=== PATIENT | female | born 1985 | race Caucasian/White ===

== ENCOUNTER 2022-02-06 11:05 | Outpatient (REF) | payer BC, SELFPAY ==
[2022-02-07 11:51] LABS: CT PCR NOT DETECTED (Not Detect.); NG PCR NOT DETECTED (Not Detect.)
[2022-02-07 14:19] LABS: BV Int Neg Control Negative (Negative); BV Int Pos Control Positive (Positive)
[2022-02-12 20:57] LABS: HPV mRNA E6/E7 rflx Not Detected (Not Detected)
== END 2022-02-06 11:06 | disposition home or self-care (01) ==
LOC: HO.LAB 11:05
PROVIDERS: Visit Provider Advanced Practice Midwife
DX: Z01.419 Encounter for gynecological examination (general) (routine) without abnormal findings (principal); Z11.51 Encounter for screening for human papillomavirus (HPV)
CPT/HCPCS: 87480; 87491; 87510; 87591; 87624; 87660; 88142

== ENCOUNTER → 2022-06-26 14:29 | Outpatient (BNVA) | payer BC, SELFPAY | PROVIDERS: PCP Internal Medicine; Visit Provider Advanced Practice Midwife | DX: Z30.432 Encounter for removal of intrauterine contraceptive device (principal); Z53.8 Procedure and treatment not carried out for other reasons; Z97.5 Presence of (intrauterine) contraceptive device | CPT/HCPCS: 58301; 81025 ==

== ENCOUNTER 2022-07-25 15:06 | Outpatient (REF) | payer BC, SELFPAY ==
[2022-07-26 14:19] LABS: CT PCR NOT DETECTED (Not Detect.); NG PCR NOT DETECTED (Not Detect.)
== END 2022-07-25 15:07 | disposition home or self-care (01) ==
LOC: HO.LNP 15:06
PROVIDERS: PCP Internal Medicine; Visit Provider Obstetrics & Gynecology
DX: Z30.430 Encounter for insertion of intrauterine contraceptive device (principal)
CPT/HCPCS: 0353U; 58300; J7298

== ENCOUNTER → 2022-08-29 15:46 | Outpatient (BNVA) | payer BC, SELFPAY | PROVIDERS: PCP Internal Medicine; Visit Provider Advanced Practice Midwife | DX: Z13.89 Encounter for screening for other disorder (principal) ==

== ENCOUNTER 2022-11-13 17:00 | Outpatient (RCR) | payer BC, SELFPAY | END 2023-01-17 08:24 | disposition home or self-care (01) | LOC: HO.PT 17:00 | PROVIDERS: PCP Internal Medicine; Visit Provider Advanced Practice Midwife | DX: M62.89 Other specified disorders of muscle (principal) | CPT/HCPCS: 97110; 97112; 97140; 97162 ==

== ENCOUNTER 2023-05-01 15:06 | Outpatient (AMB) | payer BC, SELFPAY ==
--- NOTE | 2023-05-01 15:08 | A.OFFVIS_ITS ---
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 It was inserted last year this is her 3rd I was not able to replace at after removing the last [address] Nolasco for replacement so there was a 3 week gap. She has noticed some more spotting with this 1 where she was totally amenorrheic with the previous two. she is using it for. Control, but this is fine it is not a problem. 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 [facility] Family History (Updated 05/01/23 @ 15:13 by Rayne Louie CMA) Father HTN (hypertension) Mother HTN (hypertension) Maternal Grandfather Diabetes Maternal Grandmother Diabetes Social History (Updated 05/01/23 @ 15:14 by Rayne Louie CMA) Household Members Other:: partner Housing: House Alcohol intake: never Patient Tobacco Use Status: Never used Tobacco Current occupational status: unemployed Sexual orientation: Straight/Heterosexual Gender identity: Female Female Reproductive History Menstrual Age of Menarche: 13 control method: progestin IUCD Total pregnancies: 0 Date of last pap smear: 02/08/22 Physical Exam Vital Signs: Last Vital Signs BP 114/68 05/01/23 15:11 BMI result Body Mass Index 36.5 Const General: healthy appearing, comfortable, no acute distress, well developed and alert Nutritional Appearance: average body habitus Orientation/consciousness: patient oriented x3 Limitations: no limitations HEENT Head: Yes normocephalic Neck Neck: Yes normal visual inspection Chest Chest palpation & inspection: normal inspection of the chest Breast/axilla inspection: normal inspection of the breasts and normal inspection of the axillae Breast/axilla palpation: normal palpation of the breasts and normal palpation of the axillae Resp Effort & Inspection: normal respiratory effort GI Inspection: Yes normal to inspection, No Abdominal wall edema and No distended Palpation (GI): Soft to palpation and nontender Other: Normal speculum exam vagina pink moist healthy cervix nulliparous with scant clear to whitish mucus and Mirena strings sticking out of os uterus is small anteverted mobile nontender good tone with Kegel. General: Yes bladder normal to palpation External Female Exam: normal external appearance and normal appearance of the urethra Speculum Exam - Vagina: normal appearance of the vagina, normal palpation and normal vaginal discharge Speculum Exam - Cervix: normal appearance of the cervix, normal palpation and nontender Bimanual exam- vagina & uterus: normal bimanual exam, normal palpation, uterine size normal, bladder normal to palpation, consistency normal, normal palpation, uterine mobility normal, uterine shape normal, No Cervical tenderness present, non-tender and no cervical motion tenderness Bimanual Exam- Adnexa, other: normal adnexae, no masses, normal and No adnexal tenderness Neuro General: patient oriented x3 Assessment & Plan Assessment & Plan (1) Well woman exam with routine gynecological exam: Code(s): Z01.419 - Encounter for gynecological examination (general) (routine) without abnormal findings (2) Cervical cancer screening: Comment: 02/06/2022 Pap is negative with negative HPV. Code(s): Z12.4 - Encounter for screening for malignant neoplasm of cervix (3) Presence of 52 mg levonorgestrel-releasing intrauterine device (IUD): Comment: this is now her third IUD, inserted 07/25/22. Code(s): Z97.5 - Presence of (intrauterine) contraceptive device Plan -----Discussed in this visit the following: healthy balanced diet, regular and consistent exercise, getting recommended health screens, doing the best she can for her particular health concerns, kegel exercises, pap smear screening and followup recommendations, mammography screening and SBE, normal changes in cycles in her life stage--- . reviewed her content min with the Mirena she is fine with the occasional spotting. This 1 was inserted July of 2022. Reviewed that mammograms will start when she turns 41 she is staying physically very active in her life we will see her next year. she has no worries about infection and is not sexually active so no need for cultures, and her last Pap was negative in 2021. Coding Level of Care Code Est Pt Prev Care 18-39y(48493) Diagnoses Well woman exam with routine gynecological exam Z01.419 Cervical cancer screening Z12.4 Presence of 52 mg levonorgestrel-releasing intrauterine device (IUD) Z97.5
[2023-05-01 15:11] VITALS: BP 114/68; BMI 36.5
== END 2023-05-01 15:51 | disposition home or self-care (01) ==
PROVIDERS: PCP Internal Medicine; Visit Provider Advanced Practice Midwife
DX: Z01.419 Encounter for gynecological examination (general) (routine) without abnormal findings (principal); Z12.4 Encounter for screening for malignant neoplasm of cervix; Z97.5 Presence of (intrauterine) contraceptive device
CPT/HCPCS: 99395

== ENCOUNTER → 2023-05-01 15:06 | Outpatient (BNVA) | payer BC, SELFPAY | PROVIDERS: PCP Internal Medicine; Visit Provider Advanced Practice Midwife ==

== ENCOUNTER 2024-05-08 15:06 | Outpatient (AMB) | payer MEDICAID, SELFPAY ==
[2024-05-08 15:28] VITALS: BP 120/70; BMI 37.2
--- NOTE | 2024-05-08 15:28 | MHC.OFFVIS ---
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 She is not having any with noticing that is a different experience from 07 01. She is not worried about any STIs at this point she exercises every morning in class a couple of blocks away it open sq. She still does lots of paddling She has a primary care provider.. PFSH Family History Father HTN (hypertension) Mother HTN (hypertension) Maternal Grandfather Diabetes Maternal Grandmother Diabetes Social History Household Members Other:: partner Housing: House Alcohol intake: never Patient Tobacco Use Status: Never used Tobacco Current occupational status: unemployed Sexual orientation: Straight/Heterosexual Gender identity: Female Female Reproductive History Menstrual Age of Menarche: 13 control method: progestin IUCD Total pregnancies: 0 Date of last pap smear: 02/08/22 (negative,2014 WNL) History of abnormal pap smear: No Physical Exam Vital Signs: Last Vital Signs BP 120/70 05/08/24 15:28 BMI result Body Mass Index 37.2 Const General: healthy appearing, comfortable, no acute distress, well developed and alert Nutritional Appearance: average body habitus Orientation/consciousness: patient oriented x3 Limitations: no limitations HEENT Head: Yes normocephalic Neck Neck: Yes normal visual inspection Chest Chest palpation & inspection: normal inspection of the chest Breast/axilla inspection: normal inspection of the breasts and normal inspection of the axillae Breast/axilla palpation: normal palpation of the breasts and normal palpation of the axillae Resp Effort & Inspection: normal respiratory effort GI Inspection: Yes normal to inspection, No Abdominal wall edema and No distended Palpation (GI): Soft to palpation and nontender Other: Normal external exam vagina pink and moist nulliparous cervix is pink small tightly closed mobile nontender uterus midposition nontender mobile adnexa nontender not enlarged very good tone with Kegel Mirena strings easily visible through os. General: Yes bladder normal to palpation External Female Exam: normal external appearance and normal appearance of the urethra Speculum Exam - Vagina: normal appearance of the vagina, normal palpation and normal vaginal discharge Speculum Exam - Cervix: normal appearance of the cervix, normal palpation and nontender Bimanual exam- vagina & uterus: normal bimanual exam, normal palpation, uterine size normal, bladder normal to palpation, consistency normal, normal palpation, uterine mobility normal, uterine shape normal, No Cervical tenderness present, non-tender and no cervical motion tenderness Bimanual Exam- Adnexa, other: normal adnexae, no masses, normal and No adnexal tenderness Neuro General: patient oriented x3 Assessment & Plan Assessment & Plan (1) Presence of 52 mg levonorgestrel-releasing intrauterine device (IUD): Comment: this is now her third IUD, inserted 07/25/22. (note attempted to reinsert the 1 x 2 referred to another provider for insertion). Code(s): Z97.5 - Presence of (intrauterine) contraceptive device Category: Social Hx (2) Well woman exam with routine gynecological exam: Code(s): Z01.419 - Encounter for gynecological examination (general) (routine) without abnormal findings Category: Medical (3) Cervical cancer screening: Comment: 02/06/2022 Pap is negative with negative HPV. Code(s): Z12.4 - Encounter for screening for malignant neoplasm of cervix Category: Medical Plan -----Discussed in this visit the following: healthy balanced diet, regular and consistent exercise, getting recommended health screens, doing the best she can for her particular health concerns, kegel exercises, pap smear screening and followup recommendations, mammography screening and SBE, normal changes in cycles in her life stage--- . Reviewed her self-care she has very active and exercises well and consistently . She has a primary care provider she sees for regular screening.... At this point she has use in the Mirena for menses control the control she had no concerns whatsoever about STIs and declined any checks for infection, RTC 1 year. Coding Level of Care Code Est Pt Prev Care 18-39y(29581) Diagnoses Presence of 52 mg levonorgestrel-releasing intrauterine device (IUD) Z97.5 Well woman exam with routine gynecological exam Z01.419 Cervical cancer screening Z12.4
== END 2024-05-08 16:40 | disposition home or self-care (01) ==
PROVIDERS: PCP Internal Medicine; Visit Provider Advanced Practice Midwife
DX: Z01.419 Encounter for gynecological examination (general) (routine) without abnormal findings (principal); Z97.5 Presence of (intrauterine) contraceptive device
CPT/HCPCS: 99395

== ENCOUNTER → 2024-05-08 15:06 | Outpatient (BNVA) | payer MEDICAID, SELFPAY | PROVIDERS: PCP Internal Medicine; Visit Provider Advanced Practice Midwife | DX: Z01.419 Encounter for gynecological examination (general) (routine) without abnormal findings (principal); Z12.4 Encounter for screening for malignant neoplasm of cervix; Z97.5 Presence of (intrauterine) contraceptive device | CPT/HCPCS: 99395 ==

== ENCOUNTER 2025-05-11 15:06 | Outpatient (AMB) | payer BC, SELFPAY ==
--- NOTE | 2025-05-11 15:07 | MHC.OFFVIS ---
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 Nolasco as I had had difficulty inserting it. This is her 3rd 1 she uses it essentially for control of menses at this point not for contraception. She is healthy and doing well she sees her primary care provider when she needs to she does not have any other health concerns. She has no particularly worrisome family history. She is still paddles frequently in an open can new she does it year round. [facility] Family History Father HTN (hypertension) Mother HTN (hypertension) Maternal Grandfather Diabetes Maternal Grandmother Diabetes Social History Household Members Other:: partner Housing: House Alcohol intake: never Patient Tobacco Use Status: Never used Tobacco Current occupational status: unemployed Sexual orientation: Straight/Heterosexual Gender identity: Female Female Reproductive History Menstrual Age of Menarche: 13 control method: progestin IUCD (Mirena ) Total pregnancies: 0 Date of last pap smear: 02/06/22 (negative pap smear, negative hpv ) History of abnormal pap smear: No Physical Exam Vital Signs: Last Vital Signs BP 116/72 05/11/25 15:17 BMI result Body Mass Index 34.5 Const General: healthy appearing, comfortable, no acute distress, well developed and alert Nutritional Appearance: average body habitus Orientation/consciousness: patient oriented x3 Limitations: no limitations HEENT Head: Yes normocephalic Neck Neck: Yes normal visual inspection Chest Chest palpation & inspection: normal inspection of the chest Breast/axilla inspection: normal inspection of the breasts and normal inspection of the axillae Breast/axilla palpation: normal palpation of the breasts and normal palpation of the axillae Resp Effort & Inspection: normal respiratory effort GI Inspection: Yes normal to inspection, No Abdominal wall edema and No distended Palpation (GI): Soft to palpation and nontender Other: Completely normal exam external exam within normal limits vagina pink and moist cervix nulliparous pink smooth healthy appearing with normal scant clear to white mucus with Mirena string easily visible cervix is long close thick mobile nontender uterus midposition mobile small nontender adnexa nontender nonenlarged good tone with Kegel. General: Yes bladder normal to palpation External Female Exam: normal external appearance and normal appearance of the urethra Speculum Exam - Vagina: normal appearance of the vagina, normal palpation and normal vaginal discharge Speculum Exam - Cervix: normal appearance of the cervix, normal palpation and nontender Bimanual exam- vagina & uterus: normal bimanual exam, normal palpation, uterine size normal, bladder normal to palpation, consistency normal, normal palpation, uterine mobility normal, uterine shape normal, No Cervical tenderness present, non-tender and no cervical motion tenderness Bimanual Exam- Adnexa, other: normal adnexae, no masses, normal and No adnexal tenderness Neuro General: patient oriented x3 Assessment & Plan Assessment & Plan (1) Cervical cancer screening: Comment: 02/06/2022 Pap is negative with negative HPV. Code(s): Z12.4 - Encounter for screening for malignant neoplasm of cervix Category: Medical (2) Presence of 52 mg levonorgestrel-releasing intrauterine device (IUD): Comment: this is now her third IUD, inserted 07/25/22. (note attempted to reinsert the 1 x 2 referred to another provider for insertion). Code(s): Z97.5 - Presence of (intrauterine) contraceptive device Category: Social Hx (3) Well woman exam with routine gynecological exam: Code(s): Z01.419 - Encounter for gynecological examination (general) (routine) without abnormal findings Category: Medical Plan -----Discussed in this visit the following: healthy balanced diet, regular and consistent exercise, getting recommended health screens, doing the best she can for her particular health concerns, kegel exercises, pap smear screening and followup recommendations, mammography screening and SBE, normal changes in cycles in her life stage--- . Discussed her healthy living. She is doing well with the Mirena discussed that it can be used for between 5 and 8 years 5 years for period control however if she is not bleeding at all and she does not need it for control she can consider when she desires replacement.. Mammograms will start at age 41 and her next Pap smear would be due in 2026. Coding Level of Care Code Est Pt Prev Care 18-39y(77149) Diagnoses Cervical cancer screening Z12.4 Presence of 52 mg levonorgestrel-releasing intrauterine device (IUD) Z97.5 Well woman exam with routine gynecological exam Z01.419
[2025-05-11 15:17] VITALS: BP 116/72; BMI 34.5
== END 2025-05-11 18:44 | disposition home or self-care (01) ==
LOC: HO.HWSM 15:06
PROVIDERS: PCP Internal Medicine; Visit Provider Advanced Practice Midwife
DX: Z01.419 Encounter for gynecological examination (general) (routine) without abnormal findings (principal); Z97.5 Presence of (intrauterine) contraceptive device
CPT/HCPCS: 99395; 99459